=== PATIENT | male | born 1990 | race African-American/Black ===

== ENCOUNTER → 2017-01-06 | Outpatient (CLI) | payer BC ==
[~2017-01-06] MED LIST: ALLEGRA180 MG PO; ATIVAN1 MG PO; COLACE 100100 MG/CAP PO; DOMPERIDONE10 MG/CAP PO; EXALGO8 MG PO; FENTANYL 50MCG TOP; FENTANYL TR25 MCG/HR TD; Lortab PO; MS CONTIN15 MG PO; NO HOME MEDICATIONS; NORCO 325 MG-51 TAB PO; PHENERGAN 25 TA25 MG PO; PHENERGAN25 MG RC; PROMETHAZINE12.5 M5 PO; SENNA1 TAB PO; SEROQUEL 2525 MG/TAB PO; SEROQUEL25 MG PO; SEROQUEL50 MG PO; ZOFRAN 4MG T4 MG/TAB PO; ZOFRAN ODT4 MG PO
== END ==
LOC: BHSO 10:20
DX: F41.1 Generalized anxiety disorder (principal)

== ENCOUNTER → 2018-03-09 | Outpatient (CLI) | payer BC | LOC: COL.RAD 02-09 08:00 | DX: R11.2 Nausea with vomiting, unspecified (principal) ==

== ENCOUNTER → 2018-04-10 | Outpatient (CLI) | payer BC | LOC: COL.RAD 08:19 | DX: R11.2 Nausea with vomiting, unspecified (principal) | CPT/HCPCS: A9541 ==